=== PATIENT | male | born 1950 | race Caucasian/White ===

== ENCOUNTER 2019-06-22 12:14 | Emergency (ER) | payer OTHER ==
--- OUTSIDE RECORDS SUMMARY | 2019-06-22 12:26 | XMS REPORT | Clinical Summary ---
:1950 Author Organization [facility] Address [address] [place] [address] Care Team Providers Name Role Phone Hua Ann MD Primary Care Provider Allergies No Known Allergies Medications Medication Sig Dispensed Refills Start End Date Status Date rosuvastatin (CRESTOR) Take 5 mg 99 Active 5 MG tablet by mouth 6 once daily. hydroCHLOROthiazide TAKE 1/2 TO 0 Active (HYDRODIURIL) 25 MG 1 TABLET BY 7 tablet MOUTH EVERY OTHER DAY celecoxib (CeleBREX) Take 200 mg 3 Active 200 MG capsule by mouth 6 once daily. amlodipine-olmesartan TAKE 1 3 Active (BORA) 10-40 mg per TABLET 6 tablet EVERY DAY aspirin (ECOTRIN) 81 MG Take 81 mg 0 Active enteric coated tablet by mouth daily. MAG-G 27 mg (500 mg) Take 500 mg 3 Active tablet tablet by mouth 8 daily. levomefolate calcium Take by 0 Active (L-METHYLFOLATE ORAL) mouth daily. MULTIVITAMIN ORAL Take by 0 Active mouth. vit Take by 0 Active C/E/Zn/coppr/lutein/lars mouth. maile (PRESERVISION AREDS-2 ORAL) cyanocobalamin-cobamami Place under 0 Active de (B-12 PLUS) the tongue. 5,000-100 mcg tablet, sublingual memantine (NAMENDA) 10 Take 1 180 tablet 3 15/20 Active MG tablet tablet (10 9 20 mg total) by mouth 2 (two) times a day. DULoxetine 40 mg Take 1 90 capsule 3 Active capsule,delayed capsule by 9 release(DR/EC) mouth daily. VIAGRA 100 mg tablet TAKE 1 3 12/01/19 Discontinued TABLET 6 19 EVERY DAY NEEDED DULoxetine (CYMBALTA) Take 20 mg 4 11/11/19 Discontinued 20 MG capsule by mouth 8 19 (Reorder) daily. donepezil (ARICEPT) 5 Take 1 30 tablet 0 11/11/19 Discontinued MG tabletIndications: tablet (5 8 19 (Side effects) Mild cognitive mg total) impairment with memory by mouth loss nightly. donepezil (ARICEPT) 10 Take 1 30 tablet 4 08/14/20 Discontinued MG tabletIndications: tablet (10 8 18 (Reorder) Mild cognitive mg total) impairment with memory by mouth loss nightly. donepezil (ARICEPT) 10 Take 1 90 tablet 2 11/11/19 Discontinued MG tabletIndications: tablet (10 8 19 (Side effects) Mild cognitive mg total) impairment with memory by mouth loss nightly. memantine (NAMENDA) 5 Wk 1: 5 mg 84 tablet 0 12/09/19 Discontinued MG tablet at night 9 19 (Dose W2: 5 mg adjustment) twice daily W3:10 mg am 5 mg night memantine (NAMENDA) 10 Take 1 60 tablet 3 12/09/19 Discontinued MG tablet tablet (10 9 19 (Dose mg total) adjustment) by mouth 2 (two) times a day. DULoxetine 40 mg Take 40 mg 90 capsule 0 02/04/20 Discontinued capsule,delayed by mouth 9 19 (Reorder) release(DR/EC) daily. memantine (NAMENDA) 10 Take 1 180 tablet 1 02/10/20 Discontinued MG tablet tablet (10 9 19 (Reorder) mg total) by mouth 2 (two) times a day. DULoxetine 40 mg TAKE ONE 90 capsule 0 02/10/20 Discontinued capsule,delayed CAPSULE BY 9 19 (Reorder) release(DR/EC) MOUTH EVERY DAY Active Problems Problem Noted Date Mild cognitive impairment with memory loss 11/11/2018 Coronary artery disease involving [place] coronary artery of [place] heart 11/25 without angina pectoris Bilateral carotid bruits 11/25/2017 Memory loss or impairment 07/24/2017 Nonrheumatic aortic valve insufficiency 11/21/2016 Essential hypertension 11/21/2016 Hyperlipidemia 11/21/2016 Encounters Date Type Specialty Care Team Description 02/09/2019 Office Visit Neurology Xander Ryder MD Mild cognitive impairment with memory loss (Primary Dx) 02/03/2019 Refill Neurology Xander Ryder MD 12/09/2018 Refill Neurology Oliverio Mix MA 12/01/2018 Office Visit Cardiology Pedro Pablo Renae MD Coronary artery disease involving [place] coronary artery of [place] heart without angina pectoris (Primary Dx); Other hyperlipidemia 11/11/2018 Office Visit Neurology Xander Ryder MD Mild cognitive impairment with memory loss (Primary Dx) 09/13/2018 Refill Neurology Xander Ryder MD Mild cognitive impairment with memory loss 08/14/2018 Refill Neurology Oliverio Mix Mild cognitive impairment MA with memory loss 07/17/2018 Office Visit Neurology Xander Ryder MD Mild cognitive impairment with memory loss (Primary Dx); B12 deficiency 07/17/2018 Orders Only Neurology Oliverio Mix Memory loss or impairment MA 06/26/2018 Orders Only Neurology Marielos Aguirre MA Memory loss or impairment after 06/21/2018 Social History Tobacco Use Types Packs/Day Years Used Date Former Smoker Smokeless Tobacco: Former User Alcohol Use Drinks/Week oz/Week Comments Yes Sex Assigned at Date Recorded Not on file Job Start Date Occupation Industry Not on file Not on file Not on file Travel History Travel Start Travel End No recent travel history available. Last Filed Vital Signs Vital Sign Reading Time Taken Comments Blood Pressure 128/66 02/09/2019 1:51 PM CDT Pulse 77 02/09/2019 1:51 PM CDT Temperature - - Respiratory Rate - - Oxygen Saturation - - Inhaled Oxygen Concentration - - Weight 83.5 kg (184 lb) 02/09/2019 1:51 PM CDT Height 170.2 cm (5' 7") 02/09/2019 1:51 PM CDT Body Mass Index 28.82 02/09/2019 1:51 PM CDT Plan of Treatment Date Type Specialty Care Team Description 09/30/2019 [place] [address] [address] [phone] 11/30/2019 Office Visit Cardiology Pedro Pablo Renae MD [address] [facility] [address] [place] [address] Health Maintenance Due Date Last Done Comments COLONOSCOPY SCREENING 2000 SHINGLES VACCINES (#1) 2000 65+ PNEUMOCOCCAL VACCINE (1 of 2 - PCV13) 2015 INFLUENZA VACCINE 05/27/2019 09/10/2018 Procedures Procedure Name Priority Date/Time Associated Diagnosis Comments COPY RECEIVED FROM: Routine 12/03/2018 9:20 Results for this AM GRINDING OPERATOR procedure are in the results section. NON HDL CHOLESTEROL Routine 12/03/2018 9:20 Results for this ([facility]LEX [facility]) AM GRINDING OPERATOR procedure are in the results section. CHOL/HDLC RATIO Routine 12/03/2018 9:20 Results for this ([facility]LEX [facility]) AM GRINDING OPERATOR procedure are in the results section. LDL-CHOLESTEROL Routine 12/03/2018 9:20 Results for this ([facility]LEX [facility]) AM GRINDING OPERATOR procedure are in the results section. TRIGLYCERIDES Routine 12/03/2018 9:20 Results for this AM GRINDING OPERATOR procedure are in the results section. HDL CHOLESTEROL Routine 12/03/2018 9:20 Results for this AM GRINDING OPERATOR procedure are in the results section. CHOLESTEROL Routine 12/03/2018 9:20 Results for this AM GRINDING OPERATOR procedure are in the results section. COPY(IES) SENT TO: Routine 12/03/2018 9:20 Results for this AM GRINDING OPERATOR procedure are in the results section. AST (SGOT) Routine 12/03/2018 9:20 Coronary artery Results for this AM GRINDING OPERATOR disease involving procedure are in [place] coronary artery the results of [place] heart section. without angina pectoris Other hyperlipidemia LIPID PANEL Routine 12/03/2018 9:20 Coronary artery Results for this AM GRINDING OPERATOR disease involving procedure are in [place] coronary artery the results of [place] heart section. without angina pectoris Other hyperlipidemia ECG 12-LEAD Routine 12/01/2018 11:36 Coronary artery Results for this AM GRINDING OPERATOR disease involving procedure are in [place] coronary artery the results of [place] heart section. 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 VITAMIN B12 LEVEL Routine 07/17/2018 11:13 Biotin-(propionyl-CoA- Results for this AM CDT carboxylase) ligase procedure are in deficiency the results section. after 06/21/2018 Results NON HDL CHOLESTEROL ([facility]LEX [facility]) (12/03/2018 9:20 AM GRINDING OPERATOR) Non-HDL cholesterol 129 <130 mg/dL [facility] Comment: (calc) [place] For patients with diabetes plus 1 major ASCVD risk factor, treating to a non-HDL-C goal of <100 mg/dL (LDL-C of <70 mg/dL) is considered a therapeutic option. Specimen Narrative Performed At FASTING:YES [facility] FASTING: YES Resulting Agency Comment Performing Organization Information: Site ID: [facility] Name: [facility] Address: [address] [place] [address] Director: Kimberly Weir Performing Organization Address [facility] [place] [address] CHOL/HDLC RATIO ([facility]LEX [facility]) (12/03/2018 9:20 AM GRINDING OPERATOR) Cholesterol/HDL ratio 3.6 <5.0 (calc) [facility] [place] Specimen Narrative Performed At FASTING:YES [facility] FASTING: YES Resulting Agency Comment Performing Organization Information: Site ID: [facility] Name: [facility] Address: [address] [place] [address] Director: Kimberly Weir Performing Organization Address [facility] Phone [place] [address] COPY RECEIVED FROM: (12/03/2018 9:20 AM GRINDING OPERATOR) Copy received from: [facility] Comment: [address] [facility] [address] [place] [address] Specimen Narrative Performed At FASTING:YES [facility] FASTING: YES Performing Organization Address [facility] Phone Number [facility] LDL-CHOLESTEROL ([facility]LEX [facility]) (12/03/2018 9:20 AM GRINDING OPERATOR) LDL cholesterol 106 (H) mg/dL (calc) [facility] calculated Comment: [place] Reference range: <100 Desirable range <100 mg/dL for primary prevention; <70 mg/dL for patients with CHD or diabetic patients with > or=2 CHD risk factors. LDL-C is now calculated using the Melly calculation, which is a validated novel method providing better accuracy than the Friedewald equation in the estimation of LDL-C. Carlos SS et al. JO. 2013;310(21): 8319-1872 (http://education.Notorious/faq/TSL154) Specimen Narrative Performed At FASTING:YES [facility] FASTING: YES Resulting Agency Comment Performing Organization Information: Site ID: [facility] Name: [facility] Address: [address] [place] [address] Director: Kimberly Weir Performing Organization Address [facility] [place] [address] COPY(IES) SENT TO: (12/03/2018 9:20 AM GRINDING OPERATOR) Copies/mL [facility] Comment: [facility] [address] [facility] [address] [place] [address] Specimen Narrative Performed At FASTING:YES [facility] FASTING: YES Performing Organization Address [facility] Phone Number [facility] Triglycerides (12/03/2018 9:20 AM GRINDING OPERATOR) Triglycerides 129 <150 mg/dL [facility] [place] Specimen Narrative Performed At FASTING:YES [facility] FASTING: YES Resulting Agency Comment Performing Organization Information: Site ID: [facility] Name: [facility] Address: [address] [place] [id number] Director: Kimberly Weir Performing Organization Address [facility] [place] [address] AST (SGOT) (12/03/2018 9:20 AM GRINDING OPERATOR) AST 19 10 - 35 U/L [facility] [place] Specimen Blood Narrative Performed At FASTING:YES [facility] FASTING: YES Resulting Agency Comment Performing Organization Information: Site ID: [facility] Name: [facility] Address: [address] [place] [phone] Director: Kimberly Weir Performing Organization Address [facility] [place] [address] HDL cholesterol (12/03/2018 9:20 AM GRINDING OPERATOR) HDL cholesterol 50 >40 mg/dL [facility] Specimen Narrative Performed At FASTING:YES [facility] FASTING: YES Resulting Agency Comment Performing Organization Information: Site ID: [facility] Name: [facility] Address: [address] [place], [place] [id number] Director: Kimberly Weir Performing Organization Address [facility] Phone Number [facility] [place] [address] Cholesterol (12/03/2018 9:20 AM GRINDING OPERATOR) Cholesterol, total 179 <200 mg/dL [facility] Specimen Narrative Performed At FASTING:YES [facility] FASTING: YES Resulting Agency Comment Performing Organization Information: Site ID: [facility] Name: [facility] Address: [address] [place] [address] Director: Kimberly Weir Performing Organization Address [facility] Phone Number [place] [address] Lipid panel (12/03/2018 9:20 AM GRINDING OPERATOR) Cholesterol, total 179 <200 mg/dL [facility] HDL cholesterol 50 >40 mg/dL [facility] Triglycerides 129 <150 mg/dL [facility] LDL cholesterol 106 (H) mg/dL (calc) [facility] calculated Comment: [place] Reference range: <100 Desirable range <100 mg/dL for primary prevention; <70 mg/dL for patients with CHD or diabetic patients with > or=2 CHD risk factors. LDL-C is now calculated using the Melly calculation, which is a validated novel method providing better accuracy than the Friedewald equation in the estimation of LDL-C. Carlos HOLLY et al. JO. 2013;310(19): 2448-0086 (http://education.Talent Flush.Dengi Online/faq/OMP374) Cholesterol/HDL 3.6 <5.0 (calc) [facility] Non-HDL cholesterol 129 <130 mg/dL [facility] Comment: (calc) [place] For patients with diabetes plus 1 major ASCVD risk factor, treating to a non-HDL-C goal of <100 mg/dL (LDL-C of <70 mg/dL) is considered a therapeutic option. Specimen Blood Narrative Performed At FASTING:YES [facility] FASTING: YES Resulting Agency Comment Performing Organization Information: Site ID: [facility] Name: [facility] Address: [address] [place] [address] Director: Kimberly Weir Performing Organization Address City/State/Zipcode Phone Number [facility] [place] [address] [place], [place] [id number] ECG 12 lead (12/01/2018 11:36 AM GRINDING OPERATOR) Ventricular rate 60 [facility] Atrial rate 60 [facility] DC interval 154 [facility] QRSD interval 84 [facility] QT interval 382 [facility] QTC interval 382 [facility] P axis 1 71 [facility] QRS axis 1 11 [facility] T wave axis 42 [facility] EKG impression Normal sinus [facility] rhythm-Normal ECG-In automated comparison with ECG of 25-NOV-2017 09:37,-No significant change was found- Specimen Narrative Performed At Performing Organization Address [facility] Phone Number [facility] MUSE [address] [place] [address] Vitamin B1 level, whole blood (07/17/2018 11:13 AM CDT) [facility] Vitamin B1 112 70 - 180 [facility] Comment: nmol/L INTERPRETIVE INFORMATION: Vitamin B1, Whole Blood This assay measures the concentration of thiamine diphosphate (TDP), the primary active form of vitamin B1. Approximately 90 percent of vitamin B1 present in whole blood is TDP. Thiamine and thiamine monophosphate, which comprise the remaining 10 percent, are not measured. Test developed and characteristics determined by [facility]. See Compliance Statement B: [email or web address] Performed by [facility], [address] [place] [address] [email or web address], Juan Thomson MD - Lab. Director Specimen Plasma specimen Performing Organization Address [facility]/Zipcode Phone Number [facility] [address] [place] [address] Vitamin B12 level (07/17/2018 11:13 AM CDT) Vitamin B12 1,065 (E) 270 - 557 [facility] DEPARTMENT OF Comment: pg/mL PATHOLOGY AND Significant overlap exists between normal and deficiency states. GENOMIC MEDICINE However, most patients with deficiencies will have Serum B12 <200 pg/mL. 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
[2019-06-22] MEDS ORDERED: LIDOCAINE 1% MPF 5 ML VIAL ONE (12:28)
[2019-06-22] MEDS ORDERED: TETANUS & DIPHTHERIA TOX,ADULT 0.5 ML VIAL ONE (12:35)
--- NOTE | 2019-06-22 13:37 | RAD REPORT ---
EXAM DESCRIPTION: RAD - Tib Fib Right - 06/22/2019 1:20 pm CLINICAL HISTORY: Right leg pain, trauma, laceration COMPARISON: None. FINDINGS: No fracture is identified. There is no dislocation or periosteal reaction noted. No acute or suspicious bony finding. Postsurgical changes are present. Hardware is in place in the medial comp artment of the knee. No radiographic evidence for loosening. At the laceration site anterior mid tibial level there is soft tissue swelling or edema present. No f oreign body is present. IMPRESSION: No foreign body at the site of laceration. No acute bone or joint finding.
--- NOTE | 2019-06-22 13:46 | EDPHYS ---
Physician Documentation [facility] Name: Felice López Jr Age: 69 yrs Sex: Male : 1950 Arrival Date: 06/22/2019 Time: 12:17 Bed Treatment Private MD: Omer Ann B ED Physician Celestino Stauffer HPI: 06/22 13:37 This 69 yrs old Male presents to ER via Wheelchair with complaints of tayler Laceration To Leg. 13:37 The patient has a laceration related to: handling garbage, from a sharp metal object, tayler occurred at home. The laceration(s) is(are) located on the lateral aspect of right calf. Onset: The symptoms/episode began/occurred just prior to arrival. The patient has not experienced similar symptoms in the past. Historical: - Allergies: 12:21 No Known Allergies; la1 - PMHx: 12:21 Arthritis; Hypertension; stomach cancer; la1 - Immunization history:: Adult Immunizations up to date. - Social history:: Smoking status: Patient/guardian denies using tobacco. - Ebola Screening: : No symptoms or risks identified at this time. - Family history:: not pertinent. ROS: 13:37 Constitutional: Negative for fever, chills, and weight loss, Eyes: Negative for injury, tayler pain, redness, and discharge, ENT: Negative for injury, pain, and discharge, Neck: Negative for injury, pain, and swelling, Cardiovascular: Negative for chest pain, palpitations, and edema, Respiratory: Negative for shortness of breath, cough, wheezing, and pleuritic chest pain, Abdomen/GI: Negative for abdominal pain, nausea, vomiting, diarrhea, and constipation, Back: Negative for injury and pain, : Negative for injury, bleeding, discharge, and swelling, Skin: Negative for injury, rash, and discoloration, Neuro: Negative for headache, weakness, numbness, tingling, and seizure, Psych: Negative for depression, anxiety, suicide ideation, homicidal ideation, and hallucinations, Allergy/Immunology: Negative for hives, rash, and allergies, Endocrine: Negative for neck swelling, polydipsia, polyuria, polyphagia, and marked weight changes, Hematologic/Lymphatic: Negative for swollen nodes, abnormal bleeding, and unusual bruising. 13:37 MS/extremity: Positive for pain, swelling, tenderness, of the lateral aspect of right calf. Exam: 13:37 Constitutional: This is a well developed, well nourished patient who is awake, alert, tayler and in no acute distress. Head/Face: Normocephalic, atraumatic. Eyes: Pupils equal round and reactive to light, extra-ocular motions intact. Lids and lashes normal. Conjunctiva and sclera are non-icteric and not injected. Cornea within normal limits. Periorbital areas with no swelling, redness, or edema. ENT: Nares patent. No nasal discharge, no septal abnormalities noted. Tympanic membranes are normal and external auditory canals are clear. Oropharynx with no redness, swelling, or masses, exudates, or evidence of obstruction, uvula midline. Mucous membranes moist. Neck: Trachea midline, no thyromegaly or masses palpated, and no cervical lymphadenopathy. Supple, full range of motion without nuchal rigidity, or vertebral point tenderness. No Meningismus. Chest/axilla: Normal chest wall appearance and motion. Nontender with no deformity. No lesions are appreciated. Cardiovascular: Regular rate and rhythm with a normal S1 and S2. No gallops, murmurs, or rubs. Normal PMI, no JVD. No pulse deficits. Respiratory: Lungs have equal breath sounds bilaterally, clear to auscultation and percussion. No rales, rhonchi or wheezes noted. No increased work of breathing, no retractions or nasal flaring. Abdomen/GI: Soft, non-tender, with normal bowel sounds. No distension or tympany. No guarding or rebound. No evidence of tenderness throughout. Back: No spinal tenderness. No costovertebral tenderness. Full range of motion. Male : Normal genitalia with no discharge or lesions. Skin: Warm, dry with normal turgor. Normal color with no rashes, no lesions, and no evidence of cellulitis. Neuro: Awake and alert, GCS 15, oriented to person, place, time, and situation. Cranial nerves II-XII grossly intact. Motor strength 5/5 in all extremities. Sensory grossly intact. Cerebellar exam normal. Normal gait. Psych: Awake, alert, with orientation to person, place and time. Behavior, mood, and affect are within normal limits. 13:37 Musculoskeletal/extremity: Extremities: laceration, ROM: no acute changes, intact in all extremities, full active range of motion, full passive range of motion, Circulation is intact in all extremities. Pulses: are normal with no appreciated deficits, Sensation intact. Compartment Syndrome exam of affected extremity: is normal. Vital Signs: 12:21 BP 120 / 83; Pulse 100; Resp 16; Temp 98.4; Pulse Ox 98% on R/A; Weight 79.38 kg; la1 Height 5 ft. 7 in. (170.18 cm); 12:21 Body Mass Index 27.41 (79.38 kg, 170.18 cm) [facility] Laceration: 13:40 Wound Repair of 2.5cm ( 1.0in ) subcutaneous laceration to right leg. Linear shaped.. [facility] Distal neuro/vascular/tendon intact. Anesthesia: Local anesthetic administered with 5 mls of 1% lidocaine. Wound prep: Moderate cleansing by me. Skin closed with 2 5-0 Prolene using vertical mattress sutures and sterile technique. Dressed with Neosporin, non-adherent dressing. Patient tolerated well. MDM: 12:31 Patient medically screened. [facility] 13:39 Data reviewed: vital signs, nurses notes, radiologic studies, plain films. [facility] 06/22 12:33 Order name: Tib Fib Right XRAY [facility] 06/22 12:32 Order name: Prolene, Sutures; Complete Time: 12:32 [facility] 06/22 12:32 Order name: Dressing - Wound; Complete Time: 14:13 [facility] 06/22 12:32 Order name: Gloves, Sterile; Complete Time: 12:32 [facility] 06/22 12:32 Order name: Setup Suture Tray; Complete Time: 12:32 [facility] 06/22 12:33 Order name: Prolene, Sutures; Complete Time: 12:34 [facility] 06/22 12:33 Order name: Dressing - Wound; Complete Time: 12:34 [facility] 06/22 12:33 Order name: Gloves, Sterile; Complete Time: 12:34 [facility] 06/22 12:33 Order name: Setup Suture Tray; Complete Time: 12:34 [facility] Administered Medications: 12:34 CANCELLED (Duplicate Order): Lidocaine (2 %) 5 ml 5 ml Infiltration once; to bedside [facility] 12:38 Drug: Tetanus-Diphtheria Toxoid Adult 0.5 ml {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 Exp: la1 02/04/2021. Lot #: [id number]. } Route: IM; Site: left deltoid; 14:13 Follow up: Response: No adverse reaction iw 13:10 Drug: Lidocaine (1 %) 5 ml Volume: 5 ml; Route: Infiltration; iw Disposition: 06/22/19 13:41 Discharged to Home. Impression: Laceration without foreign body, right lower leg. - Condition is Stable. - Discharge Instructions: Laceration Care, Adult, Laceration Care, Adult, [id number]. - Prescriptions for Keflex 500 mg Oral Capsule - take 1 capsule by ORAL route every 6 hours for 7 days; 28 capsule. - Medication Reconciliation Form, Thank You Letter, Antibiotic Education, Prescription Opioid Use form. - Follow up: Omer Ann MD; When: 7 - 10 days; Reason: Recheck today's complaints, Continuance of care, Re-evaluation by your physician. - Problem is new. - Symptoms have improved. Signatures: Dispatcher [employer] EDIL Celestino Stauffer MD MD cha Williams, Irene RN JOCELYN Telly De La Fuente RN RN la1 Corrections: (The following items were deleted from the chart) 12:34 12:33 Lidocaine (2 %) 5 ml 5 ml Infiltration once; to bedside ordered. tayler adams 14:14 13:41 06/22/2019 13:41 Discharged to Home. Impression: Laceration without foreign body, iw right lower leg. Condition is Stable. Forms are Medication Reconciliation Form, Thank You Letter, Antibiotic Education, Prescription Opioid Use. Follow up: Omer Ann; When: 7 - 10 days; Reason: Recheck today's complaints, Continuance of care, Re-evaluation by your physician. Problem is new. Symptoms have improved. tayler
--- NOTE | 2019-06-22 13:46 | ER ---
Nurse's Notes [facility] Name: Felice López Jr Age: 69 yrs Sex: Male : 1950 Arrival Date: 06/22/2019 Time: 12:17 Bed Treatment Private MD: Omer Ann B Diagnosis: Laceration without foreign body, right lower leg Presentation: 06/22 12:20 Presenting complaint: Patient states: I was carrying stuff and some stuff in a black la1 trash bag and it cut my right lower leg. Pt reports small laceration, bleeding controlled. Transition of care: patient was not received from another setting of care. Complicating Factors: There are no complicating factors for this patient. Onset of symptoms was June 22, 2019. Risk Assessment: Do you want to hurt yourself or someone else? Patient reports no desire to harm self or others. Initial Sepsis Screen: Does the patient meet any 2 criteria? No. Patient's initial sepsis screen is negative. Does the patient have a suspected source of infection? No. Patient's initial sepsis screen is negative. Care prior to arrival: None. 12:20 Method Of Arrival: Wheelchair la1 12:20 Acuity: GE 4 la1 Historical: - Allergies: 12:21 No Known Allergies; la1 - PMHx: 12:21 Arthritis; Hypertension; stomach cancer; la1 - Immunization history:: Adult Immunizations up to date. - Social history:: Smoking status: Patient/guardian denies using tobacco. - Ebola Screening: : No symptoms or risks identified at this time. - Family history:: not pertinent. Screenin:31 Abuse screen: Denies threats or abuse. Nutritional screening: On. Tuberculosis la1 screening: No symptoms or risk factors identified. Fall Risk None identified. Assessment: 12:31 General: Appears in no apparent distress. Behavior is calm, cooperative. Pain: la1 Complains of pain in right garcia. Neuro: Level of Consciousness is awake, alert, obeys commands, Oriented to person, place, time, situation. Cardiovascular: Capillary refill < 3 seconds Patient's skin is warm and dry. Respiratory: Airway is patent Respiratory effort is even, unlabored. Musculoskeletal: Circulation, motion, and sensation intact. Capillary refill < 3 seconds, Range of motion: intact in all extremities. Injury Description: Laceration is 0.5 to 2.5 cm long, not bleeding, was sustained 1-2 hours ago. Vital Signs: 12:21 BP 120 / 83; Pulse 100; Resp 16; Temp 98.4; Pulse Ox 98% on R/A; Weight 79.38 kg; la1 Height 5 ft. 7 in. (170.18 cm); 12:21 Body Mass Index 27.41 (79.38 kg, 170.18 cm) la1 ED Course: 12:17 Patient arrived in ED. mr 12:17 Omer Ann MD is Private Physician. mr 12:21 Triage completed. la1 12:22 Arm band placed on right wrist. la1 12:31 Celestino Stauffer MD is Attending Physician. [facility] 12:31 Telly De La Fuente, JOCELYN is Primary Nurse. la1 12:31 Call light in reach. la1 13:21 Tib Fib Right XRAY In Process Unspecified. EDMS 13:41 Omer Ann MD is Referral Physician. [facility] 14:00 Assist provider with laceration repair on right garcia that was between 2.6 to 7.5 cm iw using sutures. Set up tray. Performed by Celestino Stauffer MD Dressed with band aid, Neosporin, Patient tolerated well. Patient did not have IV access during this emergency room visit. Administered Medications: 12:34 CANCELLED (Duplicate Order): Lidocaine (2 %) 5 ml 5 ml Infiltration once; to bedside la1 12:38 Drug: Tetanus-Diphtheria Toxoid Adult 0.5 ml {Transporter Driver: [employer]. Exp: 02/04/2021. Lot #: [id number]. } Route: IM; Site: left deltoid; 14:13 Follow up: Response: No adverse reaction iw 13:10 Drug: Lidocaine (1 %) 5 ml Volume: 5 ml; Route: Infiltration; iw Outcome: 13:41 Discharge ordered by . [facility] 14:14 Discharged to home ambulatory, with family. iw 14:14 Condition: good 14:14 Discharge instructions given to patient, family, Instructed on discharge instructions, follow up and referral plans. medication usage, Demonstrated understanding of instructions, follow-up care, medications, Prescriptions given X 1. 14:14 Patient left the ED. iw Signatures: Dispatcher [employer] EDAL Celestino Stauffer MD MD cha Rivera, Mary mr Williams, Irene RN RN iw Telly De La Fuente, RN RN la1
== END 2019-06-22 14:14 | disposition home or self-care (01) ==
LOC: ER 12:14
PROC: 0JQN0ZZ Repair Right Lower Leg Subcutaneous Tissue and Fascia, Open Approach (ICD-10-PCS; principal; 2019-06-22)
DX: S81.811A Laceration without foreign body, right lower leg, initial encounter (principal); W26.9XXA Contact with unspecified sharp object(s), initial encounter; Y93.E9 Activity, other interior property and clothing maintenance; Y92.009 Unspecified place in unspecified non-institutional (private) residence as the place of occurrence of the external cause; Z23 Encounter for immunization; Z85.028 Personal history of other malignant neoplasm of stomach; I10 Essential (primary) hypertension
CPT/HCPCS: 90471; 90714; 99284

== ENCOUNTER 2019-07-02 09:32 | Emergency (ER) | payer OTHER ==
--- OUTSIDE RECORDS SUMMARY | 2019-07-02 09:43 | XMS REPORT | Clinical Summary ---
:1950 Author Organization [facility] Address [address] [place] [address] Care Team Providers Name Role Phone Hua [...] memory loss 11/11/2018 Coronary artery disease involving chemehuevi coronary artery of chemehuevi heart 11/25 without angina pectoris Bilateral carotid [...] Pablo Renae MD Coronary artery disease involving chemehuevi coronary artery of chemehuevi heart without angina pectoris (Primary Dx); Other hyperlipidemia 11/11/2018 Office Visit Neurology Xander Ryder MD Mild cognitive impairment with memory loss (Primary Dx) 09/13/2018 Refill Neurology Xander Ryder MD Mild cognitive impairment with memory loss 08/14/2018 Refill Neurology Oliverio Mix, Mild cognitive impairment MA with memory loss 07/17/2018 Office Visit Neurology Xander Ryder MD Mild cognitive impairment with memory loss (Primary Dx); B12 deficiency 07/17/2018 Orders Only Neurology Oliverio Mix, Memory loss or impairment MA after 07/01/2018 Social History Tobacco Use Types Packs/Day Years [...] 09/30/2019 [place] [address] [facility] [address] [place] [address] [phone] 11/30/2019 Office Visit Cardiology Pedro Pablo Renae MD [address] [facility] [address] [place] [address] [phone] Health Maintenance Due Date Last Done Comments COLONOSCOPY SCREENING 2000 SHINGLES VACCINES (#1) 2000 65+ PNEUMOCOCCAL VACCINE (1 of 2 - PCV13) 2015 INFLUENZA VACCINE 05/27/2019 09/10/2018 Procedures Procedure Name Priority Date/Time Associated Diagnosis Comments COPY RECEIVED FROM: Routine 12/03/2018 9:20 Results for this AM CUTTING INSPECTOR procedure are in the results section. NON HDL CHOLESTEROL Routine 12/03/2018 9:20 Results for this ([facility]) AM CUTTING INSPECTOR procedure are in the results section. CHOL/HDLC RATIO Routine 12/03/2018 9:20 Results for this (REFLEX [facility]) AM CUTTING INSPECTOR procedure are in the results section. LDL-CHOLESTEROL Routine 12/03/2018 9:20 Results for this (REFLEX [facility]) AM CUTTING INSPECTOR procedure are in the results section. TRIGLYCERIDES Routine 12/03/2018 9:20 Results for this AM CUTTING INSPECTOR procedure are in the results section. HDL CHOLESTEROL Routine 12/03/2018 9:20 Results for this AM CUTTING INSPECTOR procedure are in the results section. CHOLESTEROL Routine 12/03/2018 9:20 Results for this AM CUTTING INSPECTOR procedure are in the results section. COPY(IES) SENT TO: Routine 12/03/2018 9:20 Results for this AM CUTTING INSPECTOR procedure are in the results section. AST (SGOT) Routine 12/03/2018 9:20 Coronary artery Results for this AM CUTTING INSPECTOR disease involving procedure are in chemehuevi coronary artery the results of chemehuevi heart section. without angina pectoris Other hyperlipidemia LIPID PANEL Routine 12/03/2018 9:20 Coronary artery Results for this AM CUTTING INSPECTOR disease involving procedure are in chemehuevi coronary artery the results of chemehuevi heart section. without angina pectoris Other hyperlipidemia ECG 12-LEAD Routine 12/01/2018 11:36 Coronary artery Results for this AM CUTTING INSPECTOR disease involving procedure are in chemehuevi coronary artery the results of chemehuevi heart section. 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 VITAMIN B12 LEVEL Routine 07/17/2018 11:13 Biotin-(propionyl-CoA- Results for this AM CDT carboxylase) ligase procedure are in deficiency the results section. after 07/01/2018 Results NON HDL CHOLESTEROL ([facility]) (12/03/2018 9:20 AM CUTTING INSPECTOR) Non-HDL cholesterol 129 <130 mg/dL [facility] Comment: (calc) ANDERSON For patients with diabetes plus 1 major ASCVD risk factor, treating to a non-HDL-C goal of <100 mg/dL (LDL-C of <70 mg/dL) is considered a therapeutic option. Specimen Narrative Performed At FASTING:YES [facility] FASTING: YES Resulting Agency Comment Performing Organization Information: Site ID: [facility] Name: [facility] Address: [address] [place] [address] Director: Kimberly Weir Performing Organization Address [facility] Cent[facility]ode [place] [address] CHOL/HDLC RATIO ([facility]LEX [facility]) (12/03/2018 9:20 AM CUTTING INSPECTOR) Cholesterol/HDL ratio 3.6 <5.0 (calc) [facility] [place] Specimen Narrative Performed At FASTING:YES [facility] FASTING: YES Resulting Agency Comment Performing Organization Information: Site ID: [facility] Name: [facility] Address: [address] [place] [address] Director: Kimberly Weir Performing Organization Address [facility] Centercone [place] [address] COPY RECEIVED FROM: (12/03/2018 9:20 AM CUTTING INSPECTOR) Copy received from: [facility] Comment: JOYCE BARKER CARDIO [address] [facility] [address] [place] [address] Specimen Narrative Performed At FASTING:YES [facility] FASTING: YES Performing Organization Address City/[facility]/Zipcode Phone Number [facility] LDL-CHOLESTEROL ([facility]) (12/03/2018 9:20 AM CUTTING INSPECTOR) LDL cholesterol 106 (H) mg/dL (calc) [facility] calculated Comment: ANDERSON Reference range: <100 Desirable range <100 mg/dL for primary prevention; <70 mg/dL for patients with CHD or diabetic patients with > or=2 CHD risk factors. LDL-C is now calculated using the Carlos-Limon calculation, which is a validated novel method providing better accuracy than the Friedewald equation in the estimation of LDL-C. Carlos HOLLY et al. JO. 2013;310(58): 9604-0850 (http://education.Semantify/faq/YIV895) Specimen Narrative Performed At FASTING:YES [facility] FASTING: YES Resulting Agency Comment Performing Organization Information: Site ID: [facility] Name: [facility] Address: [address] [place] [phone] Director: Kimberly Weir Performing Organization Address [facility] Phone Number [place] [address] [place] [address] COPY(IES) SENT TO: (12/03/2018 9:20 AM CUTTING INSPECTOR) Copies/mL [facility] Comment: LUCERO CARDIO [address] [facility] [address] [place] [address] Specimen Narrative Performed At FASTING:YES [facility] FASTING: YES Performing Organization Address [facility] Phone Number [facility] Triglycerides (12/03/2018 9:20 AM CUTTING INSPECTOR) Triglycerides 129 <150 mg/dL [place] Specimen Narrative Performed At FASTING:YES [facility] FASTING: YES Resulting Agency Comment Performing Organization Information: Site ID: [facility] Name: [facility] Address: [address] [place] [phone] Director: Kimberly Weir Performing Organization Address [facility] Phone Number [place] [address] [place] [address] AST (SGOT) (12/03/2018 9:20 AM CUTTING INSPECTOR) AST 19 10 - 35 U/L [place] Specimen Blood Narrative Performed At FASTING:YES [facility] FASTING: YES Resulting Agency Comment Performing Organization Information: Site ID: [id number] Name: [facility] Address: [address] [place] [phone] Director: Kimberly Weir Performing Organization Address [facility] Phone Number [place] [address] [place] [phone] HDL cholesterol (12/03/2018 9:20 AM CUTTING INSPECTOR) HDL cholesterol 50 >40 mg/dL [facility] [employer] [place] Specimen Narrative Performed At FASTING:YES [facility] FASTING: YES Resulting Agency Comment Performing Organization Information: Site ID: [facility] Name: [facility] Address: [address] [place] [address] Director: Kimberly Weir Performing Organization Address [facility]one Phone Number [place] [address] [address] Cholesterol (12/03/2018 9:20 AM CUTTING INSPECTOR) Pathologist [facility] Cholesterol, total 179 <200 mg/dL [facility] Specimen Narrative Performed At FASTING:YES [facility] FASTING: YES Resulting Agency Comment Performing Organization Information: Site ID: A Name: [facility] Address: [address] [place] [address] Director: Kimberly Weir Performing Organization Address [facility]ercone Phone Number [place] [address] [address] Lipid panel (12/03/2018 9:20 AM CUTTING INSPECTOR) Pathologist [facility] Cholesterol, total 179 <200 mg/dL [facility] [employer] [place] HDL cholesterol 50 >40 mg/dL [place] Triglycerides 129 <150 mg/dL [facility] [employer] [place] LDL cholesterol 106 (H) mg/dL (calc) [place] calculated Comment: [place] Reference range: <100 Desirable range <100 mg/dL for primary prevention; <70 mg/dL for patients with CHD or diabetic patients with > or=2 CHD risk factors. LDL-C is now calculated using the Carlos-Braxton calculation, which is a validated novel method providing better accuracy than the Friedewald equation in the estimation of LDL-C. Carlos HOLLY et al. JO. 2013;310(19): 1125-5994 (http://education.3i Systems.Your Image by Brooke/faq/BZH000) Cholesterol/HDL 3.6 <5.0 (calc) [facility] Non-HDL cholesterol 129 <130 mg/dL [facility] Comment: (calc) [place] For patients with diabetes plus 1 major ASCVD risk factor, treating to a non-HDL-C goal of <100 mg/dL (LDL-C of <70 mg/dL) is considered a therapeutic option. Specimen Blood Narrative Performed At FASTING:YES [facility] FASTING: YES Resulting Agency Comment Performing Organization Information: Site ID: [id number] Name: [facility] Address: [address] [place] [address] Director: Kimberly Weir Performing Organization Address City/[facility]/Zipcode Phone Number [place] [address] [place] [address] ECG 12 lead (12/01/2018 11:36 AM CUTTING INSPECTOR) Ventricular rate 60 [facility] Atrial rate 60 [facility] MD interval 154 [facility] QRSD interval 84 [facility] QT interval 382 [facility] QTC interval 382 [facility] P axis 1 71 [facility] QRS axis 1 11 [facility]USE T wave axis 42 [facility] EKG impression Normal sinus [facility] MUSE rhythm-Normal ECG-In automated comparison with ECG of 25-NOV-2017 09:37,-No significant change was found- Specimen Narrative Performed At Performing Organization Address [facility]ercone Phone Number [facility] [address] [place] [address] Vitamin B1 level, whole blood (07/17/2018 11:13 AM CDT) Pathologist [facility] Vitamin B1 112 70 - 180 [facility] Comment: nmol/L INTERPRETIVE INFORMATION: Vitamin B1, Whole Blood This assay measures the concentration of thiamine diphosphate (TDP), the primary active form of vitamin B1. Approximately 90 percent of vitamin B1 present in whole blood is TDP. Thiamine and thiamine monophosphate, which comprise the remaining 10 percent, are not measured. Test developed and characteristics determined by [facility]. See Compliance Statement B: [employer]/CS Performed by [facility], [address] [place], [place] [id number] [email or web address], Juan Thomson MD - Lab. Director Specimen Plasma specimen Performing Organization Address City/[facility]/Zipcode Phone Number [facility] [address] [place] [address] Vitamin B12 level (07/17/2018 11:13 AM CDT) Vitamin B12 1,060 (H) 015 - 965 [facility] DEPARTMENT OF Comment: pg/mL PATHOLOGY AND Significant overlap exists between normal and deficiency states. GENOMIC MEDICINE However, most patients with deficiencies will have Serum B12 <200 pg/mL. Specimen Serum Performing Organization Address City/State/Zipcode Phone Number [facility] DEPARTMENT OF PATHOLOGY AND [address] [place] [address] GENOMIC MEDICINE after 07/01/2018 Advance Directives For more information, please contact: [phone] Type Date Recorded Patient Docent Coordinator Explanation Advance Directives, Living Will and Medical Power of [place]
--- NOTE | 2019-07-02 09:56 | ER ---
Nurse's Notes [facility] Name: Felice López Jr Age: 69 yrs Sex: Male : 1950 Arrival Date: 07/02/2019 Time: 09:35 Bed 12 Private MD: Omer Ann B Diagnosis: Encounter for removal of sutures Presentation: 07/02 09:40 Transition of care: patient was not received from another setting of care. Onset of iw symptoms was July 02, 2019. Risk Assessment: Do you want to hurt yourself or someone else? Patient reports no desire to harm self or others. Initial Sepsis Screen: Does the patient meet any 2 criteria? No. Patient's initial sepsis screen is negative. Does the patient have a suspected source of infection? No. Patient's initial sepsis screen is negative. Care prior to arrival: None. 09:40 Acuity: GE 4 iw 09:40 Method Of Arrival: Ambulatory iw Historical: - Allergies: 09:41 No Known Allergies; iw Vital Signs: 09:40 BP 147 / 86; Pulse 67; Resp 16; Temp 97.6; Pulse Ox 94% on R/A; Weight 81.65 kg; Height iw 5 ft. 7 in. (170.18 cm); 09:40 Body Mass Index 28.19 (81.65 kg, 170.18 cm) iw ED Course: 09:35 Patient arrived in ED. as 09:35 Omer Ann MD is Private Physician. as 09:37 Trisha Shi, RN is Primary Nurse. iw 09:37 Celestino Stauffer MD is Attending Physician. [facility] 09:37 Afia White FNP-C [facility] snw 09:40 Triage completed. iw 09:54 Omer Ann MD is Referral Physician. snw 10:05 Arm band placed on. iw Administered Medications: No medications were administered Outcome: 09:54 Discharge ordered by . snw 10:05 Patient left the ED. iw Signatures: Celestino Stauffer MD MD cha Therrien, Shelly, FNP-C FNP-CsnRina Serrano as Trisha Shi, RN RN iw
--- NOTE | 2019-07-02 09:57 | EDPHYS ---
Physician Documentation [facility] Name: Felice López Jr Age: 69 yrs Sex: Male : 1950 Arrival Date: 07/02/2019 Time: 09:35 Bed 12 Private MD: Omer Ann B ED Physician Celestino Stauffer HPI: 07/02 09:50 This 69 yrs old Male presents to ER via Ambulatory with complaints of Suture snw Removal. 09:50 The patient has sutures on the lateral aspect of right calf. Previous treatment: The snw patient was initially treated 10 day(s) ago. Sutures/chevy progress: The patient has no c/o's. The wound is well-healing with no redness, swelling, discharge, or dehiscence reported. The patient has not experienced similar symptoms in the past. as noted. Historical: - Allergies: 09:41 No Known Allergies; iw ROS: 09:49 Constitutional: Negative for fever, chills, and weight loss, Eyes: Negative for injury, snw pain, redness, and discharge, ENT: Negative for injury, pain, and discharge, Neck: Negative for injury, pain, and swelling, Cardiovascular: Negative for chest pain, palpitations, and edema, Respiratory: Negative for shortness of breath, cough, wheezing, and pleuritic chest pain, Abdomen/GI: Negative for abdominal pain, nausea, vomiting, diarrhea, and constipation, Back: Negative for injury and pain, : Negative for injury, bleeding, discharge, and swelling, MS/Extremity: Negative for injury and deformity, Neuro: Negative for headache, weakness, numbness, tingling, and seizure, Psych: Negative for depression, anxiety, suicide ideation, homicidal ideation, and hallucinations, Allergy/Immunology: Negative for hives, rash, and allergies. 09:49 Skin: Positive for suture removal from laceration repaired 10 days ago. Exam: 09:48 Constitutional: This is a well developed, well nourished patient who is awake, alert, snw and in no acute distress. Head/Face: Normocephalic, atraumatic. Eyes: Pupils equal round and reactive to light, extra-ocular motions intact. Lids and lashes normal. Conjunctiva and sclera are non-icteric and not injected. Cornea within normal limits. Periorbital areas with no swelling, redness, or edema. ENT: Nares patent. No nasal discharge, no septal abnormalities noted. Tympanic membranes are normal and external auditory canals are clear. Oropharynx with no redness, swelling, or masses, exudates, or evidence of obstruction, uvula midline. Mucous membranes moist. Neck: Trachea midline, no thyromegaly or masses palpated, and no cervical lymphadenopathy. Supple, full range of motion without nuchal rigidity, or vertebral point tenderness. No Meningismus. Chest/axilla: Normal chest wall appearance and motion. Nontender with no deformity. No lesions are appreciated. Cardiovascular: Regular rate and rhythm with a normal S1 and S2. No gallops, murmurs, or rubs. Normal PMI, no JVD. No pulse deficits. Respiratory: Lungs have equal breath sounds bilaterally, clear to auscultation and percussion. No rales, rhonchi or wheezes noted. No increased work of breathing, no retractions or nasal flaring. Abdomen/GI: Soft, non-tender, with normal bowel sounds. No distension or tympany. No guarding or rebound. No evidence of tenderness throughout. Back: No spinal tenderness. No costovertebral tenderness. Full range of motion. MS/ Extremity: Pulses equal, no cyanosis. Neurovascular intact. Full, normal range of motion. Neuro: Awake and alert, GCS 15, oriented to person, place, time, and situation. Cranial nerves II-XII grossly intact. Motor strength 5/5 in all extremities. Sensory grossly intact. Cerebellar exam normal. Normal gait. Psych: Awake, alert, with orientation to person, place and time. Behavior, mood, and affect are within normal limits. 09:48 Skin: Appearance: normal except for affected area, three sutures removed from right lateral leg, wound edges well approximated. Pt tolerated well. 09:48 Neuro: Exam negative for acute changes. Vital Signs: 09:40 BP 147 / 86; Pulse 67; Resp 16; Temp 97.6; Pulse Ox 94% on R/A; Weight 81.65 kg; Height iw 5 ft. 7 in. (170.18 cm); 09:40 Body Mass Index 28.19 (81.65 kg, 170.18 cm) iw MDM: 09:37 Patient medically screened. [facility] 09:55 Data reviewed: vital signs, nurses notes. Data interpreted: Pulse oximetry: on room air snw is 94 %. Interpretation: acceptable. Counseling: I had a detailed discussion with the patient and/or guardian regarding: the historical points, exam findings, and any diagnostic results supporting the discharge/admit diagnosis, the need for outpatient follow up, to return to the emergency department if symptoms worsen or persist or if there are any questions or concerns that arise at home. Special discussion: Based on the history and exam findings, there is no indication for further emergent testing or inpatient evaluation. I discussed with the patient/guardian the need to see the primary care provider for further evaluation of the symptoms. 07/02 09:55 Order name: Wound Care; Complete Time: 10:04 snw 07/02 09:55 Order name: Wound dressing; Complete Time: 10:05 snw Administered Medications: No medications were administered Disposition: 12:03 Co-signature as Attending Physician, Celestino Stauffer MD I agree with the assessment and tayler plan of care. PA/CARD GRINDER HELPER's history reviewed, patient interviewed, and examined. Disposition: 07/02/19 09:54 Discharged to Home. Impression: Encounter for removal of sutures. - Condition is Stable. - Discharge Instructions: Suture Removal, Care After, Sutured Wound Care. - Medication Reconciliation Form, Thank You Letter, Antibiotic Education, Prescription Opioid Use form. - Follow up: Omer Ann; When: 1 week; Reason: Recheck today's complaints, Continuance of care, Re-evaluation by your physician. Follow up: Emergency Department; When: As needed; Reason: Worsening of condition. Signatures: Celestino Stauffer MD MD cha Therrien, Shelly, LITHOGRAPHIC CAMERA OPERATOR-C LITHOGRAPHIC CAMERA OPERATOR-Csnw Trisha Shi RN RN iw Corrections: (The following items were deleted from the chart) 10:05 09:54 07/02/2019 09:54 Discharged to Home. Impression: Encounter for removal of iw sutures. Condition is Stable. Discharge Instructions: Suture Removal, Care After, Sutured Wound Care. Forms are Medication Reconciliation Form, Thank You Letter, Antibiotic Education, Prescription Opioid Use. Follow up: Omer Ann; When: 1 week; Reason: Recheck today's complaints, Continuance of care, Re-evaluation by your physician. Follow up: Emergency Department; When: As needed; Reason: Worsening of condition. snw
== END 2019-07-02 10:05 | disposition home or self-care (01) ==
LOC: ER 09:32
DX: Z48.02 Encounter for removal of sutures (principal)
CPT/HCPCS: 99281